=== PATIENT | male | born 1990 | race Caucasian/White ===

== ENCOUNTER 2020-01-01 12:35 | Emergency (ER) | payer SELFPAY ==
[~2020-01-01] VITALS: Ht 177.8 cm; Wt 95.5 kg
[2020-01-01] MEDS ORDERED: KEFLEX500 M1 PO (15:09)
[2020-01-01] MEDS ORDERED: ERYTHROMYCIN O3.5 GM TOP (15:09)
[2020-01-01 15:35] VITALS: BP 125/78
== END 2020-01-01 15:35 | disposition home or self-care (01) | DRG 125 ==
LOC: ED 12:35
DX: S00.211A Abrasion of right eyelid and periocular area, initial encounter (principal); L08.9 Local infection of the skin and subcutaneous tissue, unspecified; X58.XXXA Exposure to other specified factors, initial encounter